=== PATIENT | female | born 1960 | race Caucasian/White ===

== ENCOUNTER → 2018-08-04 | Outpatient (CLI) | payer BC | LOC: MC.RAD 10:58 | DX: Z12.31 Encounter for screening mammogram for malignant neoplasm of breast (principal) ==

== ENCOUNTER → 2019-06-04 | Outpatient (CLI) | payer BC | LOC: COL.VAS 12:12 | DX: M79.662 Pain in left lower leg (principal) ==

== ENCOUNTER 2019-09-14 08:52 | Outpatient (CLI) | payer BC ==
[~2019-09-14] VITALS: Ht 157.5 cm; Wt 53.6 kg
[2019-09-14] MEDS ORDERED: XANAX 0.5MG0.5 MG PO (09:01)
[2019-09-14] MEDS ORDERED: ESTRATEST REGUL1 TAB (09:02)
[2019-09-14] MEDS ORDERED: DEPO-ESTRADIO5 MG/ML IM (09:03)
[2019-09-14] MEDS ORDERED: MULTI VITAMINS1 TAB PO (09:04)
[2019-09-14] MEDS ORDERED: VITAMIN B COMPL1 SGL PO (09:04)
[2019-09-14] MEDS ORDERED: OMEGA-3 FISH1000 MG PO (09:05)
[2019-09-14 09:06] VITALS: BP 125/75; PULSE 69; TEMP 97.8
[2019-09-14] MEDS ORDERED: STOOL SOFTENER100 M2 PO (09:06)
--- NOTE | 2019-09-14 09:19 | NUR ---
Initial pre-void bladder scan showed 62 ml, pt did feel need to void. pt drinking 24 oz water, we will reasses pre void volume in 15 minutes
--- NOTE | 2019-09-14 10:19 | NUR ---
approx 30 min after pt drank 36 oz water, pre void volume was 584ml, and post void residual was 22 ml.
== END 2019-09-14 10:30 | disposition home or self-care (01) ==
LOC: EUO 08:52
DX: R33.9 Retention of urine, unspecified (principal)

== ENCOUNTER → 2019-10-15 | Outpatient (CLI) | payer BC ==
[~2019-10-15] MED LIST: DEPO-ESTRADIO5 MG/ML IM; ESTRATEST REGUL1 TAB; MULTI VITAMINS1 TAB PO; OMEGA-3 FISH1000 MG PO; STOOL SOFTENER100 M2 PO; VITAMIN B COMPL1 SGL PO; XANAX 0.5MG0.5 MG PO
== END ==
LOC: MC.RAD 10:55
DX: Z12.31 Encounter for screening mammogram for malignant neoplasm of breast (principal); N63.20 Unspecified lump in the left breast, unspecified quadrant

== ENCOUNTER → 2019-10-21 | Outpatient (CLI) | payer BC | LOC: MC.RAD 10:00 | DX: N60.02 Solitary cyst of left breast (principal) | CPT/HCPCS: G0279 ==

== ENCOUNTER → 2019-11-05 | Outpatient (CLI) | payer BC | LOC: COL.RAD 10:28 | DX: M48.061 Spinal stenosis, lumbar region without neurogenic claudication (principal); M51.26 Other intervertebral disc displacement, lumbar region ==

== ENCOUNTER → 2019-11-11 | Outpatient (CLI) | payer BC | LOC: COL.RAD 09:26 | DX: M54.5 Low back pain (principal); R93.7 Abnormal findings on diagnostic imaging of other parts of musculoskeletal system | CPT/HCPCS: A9503 ==

== ENCOUNTER → 2020-05-11 | Outpatient (CLI) | payer BC | LOC: MC.RAD 10:07 | DX: N60.02 Solitary cyst of left breast (principal) ==

== ENCOUNTER → 2020-10-24 | Outpatient (CLI) | payer BC | LOC: MC.RAD 08:02 | DX: Z12.31 Encounter for screening mammogram for malignant neoplasm of breast (principal); N64.4 Mastodynia ==

== ENCOUNTER → 2021-11-07 | Outpatient (CLI) | payer BC | LOC: MC.RAD 11-06 10:30 | DX: Z12.31 Encounter for screening mammogram for malignant neoplasm of breast (principal) ==